=== PATIENT | male | born 1960 | race African-American/Black ===

== ENCOUNTER 2017-07-04 22:40 | Emergency (ER) | payer OTHER ==
[~2017-07-04] VITALS: Ht 175.3 cm; Wt 118.0 kg
[2017-07-04 23:37] VITALS: BP 158/62
[2017-07-05] MEDS: METHYLPREDNISOLONE SOD SUCC 125 MG/2 ML VIAL IM STA (00:16)
[2017-07-05] MEDS: DIPHENHYDRAMINE 50MG/ML VIAL IM ONE (00:16)
== END 2017-07-05 00:28 | disposition home or self-care (01) ==
LOC: ER 22:40
DX: T78.3XXA Angioneurotic edema, initial encounter (principal); E11.9 Type 2 diabetes mellitus without complications; I10 Essential (primary) hypertension; Z91.013 Allergy to seafood; Y92.89 Other specified places as the place of occurrence of the external cause
CPT/HCPCS: 96372; 99284; J1200; J2930; J7030; Z7610